=== PATIENT | male | born 1995 | race Caucasian/White ===

== ENCOUNTER 2019-09-30 16:37 | Emergency (ER) | payer OTHER ==
[~2019-09-30] VITALS: Ht 182.9 cm; Wt 61.2 kg
[2019-09-30] MEDS ORDERED: methylPREDNISolone SOD SUCC PF 125 MG/2 ML VIAL. IV STA (18:38)
[2019-09-30] MEDS ORDERED: MORPHINE SULFATE 4 MG/ML VIAL. IV ONE (18:45)
--- NOTE | 2019-09-30 18:49 | PHYS DOC ---
Past Medical History Past Medical History: No Pertinent History Past Surgical History: No Surgical History Alcohol Use: None Drug Use: None Adult General Chief Complaint Chief Complaint: SORE THROAT HPI HPI Patient is a 23 year old male who presents with sore throat and difficulty swallowing. He has been having these symptoms last 2 weeks. He went his primary care doctor is treated with Augmentin even though strep test was negative. The Augmentin did not improve symptoms. Denies fever. Reports his pain is 8 out of 10 in severity and sharp. He states that he feels something in his neck. Review of Systems Review of Systems Constitutional: Denies fever or chills [] Eyes: Denies change in visual acuity, redness, or eye pain [] HENT: Reports sore throat and difficulty swallowing. Respiratory: Denies cough or shortness of breath [] Cardiovascular: No additional information not addressed in HPI [] GI: Denies abdominal pain, nausea, vomiting, bloody stools or diarrhea [] : Denies dysuria or hematuria [] Musculoskeletal: Denies back pain or joint pain [] Integument: Denies rash or skin lesions [] Neurologic: Denies headache, focal weakness or sensory changes [] Endocrine: Denies polyuria or polydipsia [] Complete systems were reviewed and found to be within normal limits, except as documented in this note. Current Medications Current Medications Current Medications Medications (Trade) Dose Ordered Sig/Shalonda Start Time Stop Time Status Last Admin Dose Admin Info (CONTRAST GIVEN -- Rx MONITORING) 1 each PRN DAILY PRN 09/30/19 19:45 10/02/19 19:44 Iohexol (Omnipaque 300 Mg/ml) 70 ml 1X ONCE 09/30/19 19:45 09/30/19 19:46 DC 09/30/19 19:57 70 ML Methylprednisolone Sodium Succinate (SOLU-Medrol 125MG VIAL) 125 mg 1X STAT 09/30/19 18:38 09/30/19 18:53 DC 09/30/19 19:16 125 MG Morphine Sulfate (Morphine Sulfate) 4 mg 1X ONCE 09/30/19 18:45 09/30/19 18:53 DC 09/30/19 19:20 4 MG Allergies Allergies Allergies Coded Allergies Type Severity Reaction Last Updated Verified No Known Drug Allergies 09/30/19 No Physical Exam Physical Exam Constitutional: Well developed, well nourished, no acute distress, non-toxic appearance. [] HENT: Normocephalic, atraumatic, bilateral external ears normal, oropharynx moist, tonsils are 2/4 with erythema, no oral exudates, nose normal. No yemi oling. Eyes: PERRLA, EOMI, conjunctiva normal, no discharge. [] Neck: Normal range of motion, some lymph node swelling, supple, no stridor. [] Cardiovascular:Heart rate regular rhythm, no murmur [] Lungs & Thorax: Bilateral breath sounds clear to auscultation [] Abdomen: Bowel sounds normal, soft, no tenderness, no masses, no pulsatile masses. [] Skin: Warm, dry, no erythema, no rash. [] Back: No tenderness, no CVA tenderness. [] Extremities: No tenderness, no cyanosis, no clubbing, ROM intact, no edema. [] Neurologic: Alert and oriented X 3, normal motor function, normal sensory function, no focal deficits noted. [] Psychologic: Affect normal, judgement normal, mood normal. [] Current Patient Data Vital Signs Vital Signs Date Time Temp Pulse Resp B/P (MAP) Pulse Ox O2 Delivery O2 Flow Rate FiO2 09/30/19 17:50 98.2 84 16 117/73 (88) 96 Room Air 98.2 Lab Values Laboratory Tests Test 09/30/19 19:12 White Blood Count 6.8 x10^3/uL (4.0-11.0) Red Blood Count 5.11 x10^6/uL (4.30-5.70) Hemoglobin 15.4 g/dL (13.0-17.5) Hematocrit 44.6 % (39.0-53.0) Mean Corpuscular Volume 87 fL (79-100) Mean Corpuscular Hemoglobin 30 pg (25-35) Mean Corpuscular Hemoglobin Concent 35 g/dL (31-37) Red Cell Distribution Width 13.4 % (11.5-14.5) Platelet Count 384 x10^3/uL (140-400) Neutrophils (%) (Auto) 72 % (31-73) Lymphocytes (%) (Auto) 19 % (24-48) L Monocytes (%) (Auto) 8 % (0-9) Eosinophils (%) (Auto) 0 % (0-3) Basophils (%) (Auto) 1 % (0-3) Neutrophils # (Auto) 4.9 x10^3/uL (1.8-7.7) Lymphocytes # (Auto) 1.3 x10^3/uL (1.0-4.8) Monocytes # (Auto) 0.5 x10^3/uL (0.0-1.1) Eosinophils # (Auto) 0.0 x10^3/uL (0.0-0.7) Basophils # (Auto) 0.0 x10^3/uL (0.0-0.2) Sodium Level 140 mmol/L (136-145) Potassium Level 3.8 mmol/L (3.5-5.1) Chloride Level 100 mmol/L (98-107) Carbon Dioxide Level 28 mmol/L (21-32) Anion Gap 12 (6-14) Blood Urea Nitrogen 15 mg/dL (8-26) Creatinine 1.0 mg/dL (0.7-1.3) Estimated GFR (Cockcroft-Gault) 92.6 BUN/Creatinine Ratio 15 (6-20) Glucose Level 83 mg/dL (70-99) Calcium Level 9.5 mg/dL (8.5-10.1) Total Bilirubin 2.1 mg/dL (0.2-1.0) H Aspartate Amino Transferase (AST) 15 U/L (15-37) Alanine Aminotransferase (ALT) 16 U/L (16-63) Alkaline Phosphatase 80 U/L (46-116) C-Reactive Protein, Quantitative < 0.5 mg/L (0-3.3) Total Protein 9.0 g/dL (6.4-8.2) H Albumin 4.8 g/dL (3.4-5.0) Albumin/Globulin Ratio 1.1 (1.0-1.7) Heterophil Agglutinins Negative (NEGATIVE) Laboratory Tests 09/30/19 19:12 Laboratory Tests 09/30/19 19:12 EKG EKG [] Radiology/Procedures Radiology/Procedures [][facility] [address] [place], [place] [id number] IMAGING REPORT Signed PATIENT: SUZI ORELLANA RACCOUNT: [id number] : 1995 LOCATION: ER AGE: 23 SEX: M EXAM STATUS: REG ER ORD. PHYSICIAN: ARMIN GLASS APRN REASON: sore throat, difficulty swallowing, r/o peritonsiller abscess PROCEDURE: CT SOFT TISSUE NECK W/CONTRAST PQRS Compliance Statement: One or more of the following individualized dose reduction techniques were utilized for this examination: 1. Automated exposure control 2. Adjustment of the mA and/or kV according to patient size 3. Use of iterative reconstruction technique CT SOFT TISSUE NECK W/CONTRAST Clinical Indication: Sore throat, difficulty swallowing. Shortness of air. Comparison: None. TECHNIQUE: Helical CT imaging of the soft tissues of the neck is performed after 70 cc of Omnipaque 300 IV contrast. Findings: Visualized brain is without midline shift or mass effect or abnormal enhancement. The globes and orbits are intact. The mastoid air cells are aerated. The paranasal sinuses are clear. The parapharyngeal fat planes are preserved. The epiglottis and aryepiglottic folds and piriform sinuses are normal. Tonsils are symmetric. No peritonsillar fluid collection. Parotid, submandibular, and thyroid glands are symmetric. Upper lungs are clear. No obvious vascular abnormality. No cervical adenopathy is seen. The cervical spine alignment is maintained. IMPRESSION: No evidence of peritonsillar abscess. Electronically signed by: Mark Torres MD (09/30/2019 8:37 PM) [facility] DICTATED and SIGNED BY: MARK TORRES MD DATE: 09/30/192036 Course & Med Decision Making Course & Med Decision Making Pertinent Labs and Imaging studies reviewed. (See chart for details) Will get mono test, and then will workup for peritonsilar abscess. Imaging is negative. Labs are unremarkable. Will d/c home to follow up with primary care. Dragon Disclaimer Dragon Disclaimer This electronic medical record was generated, in whole or in part, using a voice recognition dictation system. Departure Departure Impression: Primary Impression: Sore throat Disposition: HOME, SELF-CARE Condition: STABLE Referrals: AYESHA IYER (PCP) Patient Instructions: Sore Throat Additional Instructions: Thank you for visiting [facility]. We appreciate you trusting us with your care. If any additional problems come up don't hesitate to return to visit us. Please follow up with your primary care provider so they can plan additional care if needed and know about the problem that you had. If symptoms worsen come back to the Emergency Department. Any concerning symptoms that start such as chest pain, shortness of air, weakness or numbness on one side of the body, running high fevers or any other concerning symptoms return to the ER. ARMIN GLASS APRN Sep 30, 2019 18:49
[2019-09-30 19:24] LABS: BASO % 1 % (0-3); EOS % 0 % (0-3); HEMATOCRIT 44.6 % (39.0-53.0); HEMOGLOBIN 15.4 g/dL (13.0-17.5); LYMPH # 1.3 x10^3/uL (1.0-4.8); LYMPH % 19 % (24-48); MEAN CORPUSCULAR HEMOGLOBIN 30 pg (25-35); MEAN CORPUSCULAR HGB CONC 35 g/dL (31-37); MEAN CORPUSCULAR VOLUME 87 fL (79-100); MONO # 0.5 x10^3/uL (0.0-1.1); MONO % 8 % (0-9); NEUT # 4.9 x10^3/uL (1.8-7.7); NEUT % 72 % (31-73); PLATELET COUNT 384 x10^3/uL (140-400); RED BLOOD COUNT 5.11 x10^6/uL (4.30-5.70); RED CELL DISTRIBUTION WIDTH 13.4 % (11.5-14.5); WHITE BLOOD COUNT 6.8 x10^3/uL (4.0-11.0)
[2019-09-30 19:29] LABS: MONONUCLEOSIS PATIENT NEGATIVE (NEGATIVE)
[2019-09-30 19:37] LABS: ANION GAP 12 (6-14); BLOOD UREA NITROGEN 15 mg/dL (8-26); BUN/CREATININE RATIO 15 (6-20); CALCIUM 9.5 mg/dL (8.5-10.1); CARBON DIOXIDE 28 mmol/L (21-32); CHLORIDE 100 mmol/L (98-107); GFR 92.6; GLUCOSE 83 mg/dL (70-99); POTASSIUM 3.8 mmol/L (3.5-5.1); SODIUM 140 mmol/L (136-145)
[2019-09-30 19:44] LABS: ALBUMIN 4.8 g/dL (3.4-5.0); ALBUMIN/GLOBULIN RATIO 1.1 (1.0-1.7); ALK PHOS 80 U/L (46-116); ALT (SGPT) 16 U/L (16-63); AST (SGOT) 15 U/L (15-37); C-REACTIVE PROTEIN < 0.5 mg/L (0-3.3); TOTAL BILIRUBIN 2.1 mg/dL (0.2-1.0)
[2019-09-30] MEDS ORDERED: CONTRAST GIVEN. MC PRN (19:45)
[2019-09-30] MEDS ORDERED: IOHEXOL 300 MG/ML 100ML VIAL. IV ONE (19:45)
[2019-09-30 20:20] VITALS: BP 113/77
--- NOTE | 2019-09-30 20:40 | RAD ---
PQRS Compliance Statement: One or more of the following individualized dose reduction techniques were utilized for this examination: 1. Automated exposure control 2. Adjustment of the mA and/or kV according to patient size 3. Use of iterative reconstruction technique CT SOFT TISSUE NECK W/CONTRAST Clinical Indication: Sore throat, difficulty swallowing. Shortness of air. Comparison: None. TECHNIQUE: Helical CT imaging of the soft tissues of the neck is performed after 70 cc of Omnipaque 300 IV contrast. Findings: Visualized brain is without midline shift or mass effect or abnormal enhancement. The globes and orbits are intact. The mastoid air cells are aerated. The paranasal sinuses are clear. The parapharyngeal fat planes are preserved. The epiglottis and aryepiglottic folds and piriform sinuses are normal. Tonsils are symmetric. No peritonsillar fluid collection. Parotid, submandibular, and thyroid glands are symmetric. Upper lungs are clear. No obvious vascular abnormality. No cervical adenopathy is seen. The cervical spine alignment is maintained. IMPRESSION: No evidence of peritonsillar abscess. Electronically signed by: Mark Torres MD (09/30/2019 8:37 PM) [facility]
== END 2019-09-30 21:01 | disposition home or self-care (01) ==
LOC: ER 16:37
DX: J02.9 Acute pharyngitis, unspecified (principal)
CPT/HCPCS: 36415; 70491; 80053; 85025; 86140; 86308; 96374; 96375; 99285; J2270; J2930; Q9967